=== PATIENT | male | born 1990 | race Caucasian/White ===

== ENCOUNTER 2017-06-11 10:13 | Emergency (ER) | payer OTHER ==
[2017-06-11] MEDS ORDERED: Tetracaine 0.5% OPTH.SOL 4 ML* 1 DROP BTL ONE (10:19)
[2017-06-11] MEDS ORDERED: BSS OPTH.SOL* BTL ONE (10:19)
[2017-06-11] MEDS ORDERED: Fluorescein Sodium TOPICAL* 1 MG TEST ONE (10:19)
[2017-06-11 10:22] VITALS: BP 140/100
--- NOTE | 2017-06-11 10:26 | UC ---
Eye Complaint HPI - HPI Summary HPI Summary: 26 yo male with high velocity fb injury to left eye that occurred at work minutes ago hurts to blink Td upto date - History of Current Complaint Chief Complaint: UCEye Stated Complaint: SHARD OF METAL IN EYE Time Seen by Provider: 06/11/17 10:19 Hx Obtained From: Patient Onset/Duration: Sudden Onset Timing: Minutes Severity Initially: Moderate Severity Currently: Moderate Pain Intensity: 6 Location of Injury: Other Character: Foreign Body Sensation Aggravating Factor(s): Blinking Alleviating Factor(s): Nothing Associated Signs And Symptoms: Positive: Negative Eyes: 1 - metallic schard/no hyphema/(-) Siddel's sign - Risk Factors Penetrating Injury Risk Factor: Hammering Acute Glaucoma Risk Factors: Negative Optic Artery Occlusion Risk Factors: Negative - Allergies/Home Medications Allergies/Adverse Reactions: Allergies Allergy/AdvReac Type Severity Reaction Status Date / Time No Known Allergies Allergy Verified 06/11/17 10:19 PMH/Surg Hx/FS Hx/Imm Hx Previously Healthy: Yes - Surgical History Surgical History: None - Family History Known Family History: Positive: Hypertension - Social History Alcohol Use: None Substance Use Type: None Smoking Status (MU): Current Every Day Smoker Amount Used/How Often: 1 PPD Review of Systems Constitutional: Negative Skin: Negative Eyes: Other - left eye pain ENT: Negative Respiratory: Negative Cardiovascular: Negative Gastrointestinal: Negative Genitourinary: Negative Motor: Negative Neurovascular: Negative Musculoskeletal: Negative Neurological: Negative Psychological: Negative Is Patient Immunocompromised?: No All Other Systems Reviewed And Are Negative: Yes Physical Exam Triage Information Reviewed: Yes Appearance: Well-Appearing, No Pain Distress, Well-Nourished Vital Signs: Initial Vital Signs Temp 98 F 06/11/17 10:19 Pulse 85 06/11/17 10:19 Resp 16 06/11/17 10:19 BP 140/100 06/11/17 10:19 Vital Signs Reviewed: Yes Eyes: Positive: Conjunctiva Clear, Other: - eomi/perrl Neck: Positive: Supple Respiratory: Positive: Lungs clear, Normal breath sounds, No respiratory distress Cardiovascular: Positive: RRR, No Murmur Musculoskeletal: Positive: ROM Intact, No Edema Neurological: Positive: Alert Psychological Exam: Normal Skin Exam: Normal Eye Complaint Course/Dx - Course Course Of Treatment: D/W Dr. Beltran at [facility]. they will see patient now - Differential Dx/Diagnosis Provider Diagnoses: foreign body left eye ? penetrating injury Discharge - Discharge Plan Condition: Stable Disposition: HOME Referrals: No Primary Care Phys,NOPCP [Primary Care Provider] - Ancelmo Salmon MD [Medical Doctor] - Additional Instructions: To [facility]
== END 2017-06-11 11:13 | disposition home or self-care (01) ==
LOC: UCEAST 10:13
DX: Z72.0 Tobacco use (principal); T15.81XA Foreign body in other and multiple parts of external eye, right eye, initial encounter; S00.251A Superficial foreign body of right eyelid and periocular area, initial encounter
CPT/HCPCS: 99211; A9270-GY; G0463